=== PATIENT | female | born 1970 ===

== ENCOUNTER 2017-06-19 09:15 | Outpatient (CLI) | payer OTHER ==
[~2017-06-19] VITALS: Ht 162.6 cm; Wt 54.9 kg
== END 2017-06-19 09:30 | disposition home or self-care (01) ==
LOC: OFIC 805 09:15
DX: H60.8X3 Other otitis externa, bilateral (principal)

== ENCOUNTER 2017-06-25 14:12 | Outpatient (CLI) | payer OTHER ==
[~2017-06-25] VITALS: Ht 152.4 cm; Wt 54.4 kg
== END 2017-06-25 14:30 | disposition home or self-care (01) ==
LOC: OFIC 805 14:12
DX: H60.8X3 Other otitis externa, bilateral (principal)